=== PATIENT | male | born 1990 | race Caucasian/White ===

== ENCOUNTER 2020-02-01 11:35 | Emergency (ER) | payer OTHER ==
[~2020-02-01] VITALS: Ht 182.9 cm; Wt 70.3 kg
[2020-02-01] MEDS ORDERED: Bactrim Ds Tab1 EACH PO (14:14)
[2020-02-01] MEDS ORDERED: KEFLEX500 MG PO (14:50)
== END 2020-02-01 15:09 | disposition home or self-care (01) ==
LOC: ER 11:35
DX: L03.114 Cellulitis of left upper limb (principal); L03.113 Cellulitis of right upper limb; L03.116 Cellulitis of left lower limb; L03.115 Cellulitis of right lower limb; F17.210 Nicotine dependence, cigarettes, uncomplicated
CPT/HCPCS: 87081; 87147; 99282